=== PATIENT | male | born 1995 | race Native Hawaiian/Other Pacific Islander ===

== ENCOUNTER 2024-03-17 17:06 | Emergency (ER) | payer OTHER ==
[~2024-03-17] VITALS: Ht 175.3 cm; Wt 116.1 kg
[2024-03-17 18:34] LABS: Basophils # (auto) 0 10 ^3/uL (0-0.2); Basophils % (auto) 0.4 % (0.0-2.0); Eosinophils # (auto) 0.1 10 ^3/uL (0-0.8); Eosinophils % (auto) 0.9 % (0.0-7.0); Hematocrit 33.5 % (41.0-53.0); Hemoglobin 11.5 g/dL (13.5-17.5); Lymphocytes # (auto) 3.6 10 ^3/uL (0.4-5.4); Lymphocytes % (auto) 48.2 % (10.0-50.0); Mean Corpuscular Hemoglobin 31.1 pg (28.0-32.0); Mean Corpuscular Hgb Conc. 34.4 g/dL (32.0-36.0); Mean Corpuscular Volume 90.3 fL (80.0-100.0); Monocytes # (auto) 0.9 10 ^3/uL (0-1.3); Monocytes % (auto) 11.5 % (0.0-12.0); Neutrophils # (auto) 2.9 10 ^3/uL (1.6-8.6); Nucleated Red Blood Cells % 0.2 %; Red Blood Cells 3.71 10^6/uL (4.5-5.90); Red Cell Distribution Width 13.3 % (11.8-14.3); White Blood Cell 7.5 10^3/uL (4.4-10.8)
[2024-03-17 18:53] LABS: Alanine Aminotransferase 36 U/L (7-40); Alkaline Phosphatase 64 U/L (46-116); Anion Gap 9 (5-15); Aspartate Aminotransferase 23 U/L (13-40); BUN/Creatinine Ratio 31.7 (10.0-20.0); Bilirubin, Total 0.6 mg/dL (0.2-1.0); Blood Urea Nitrogen 32 mg/dL (9-23); Calcium 8.5 mg/dL (8.5-10.1); Carbon Dioxide 25 mmol/L (20-30); Chloride 102 mmol/L (98-107); Glucose 188 mg/dL (74-106); Potassium 3.1 mmol/L (3.5-5.1); Sodium 136 mmol/L (136-145); Total Protein 6.2 g/dL (5.7-8.2)
[2024-03-17 19:50] LABS: Urine Bacteria None Seen /hpf (None Seen)
[2024-03-17 20:18] LABS: Urine Blood Negative /uL (Negative); Urine Clarity Clear (Clear); Urine Color Light-Yellow (Yellow); Urine Protein, UAD TRACE (Negative); Urine Specific Gravity 1.025 (1.001-1.035); Urine Urobilinogen Normal (Negative); Urine WBC <1 /hpf (0 - 3)
[2024-03-17 20:25] LABS: Amphetamine Screen, Urine Neg (NEGATIVE); Barbiturate Scree,Urine Neg (NEGATIVE); Benzodiazephine Screen, Urine Neg (NEGATIVE)
[2024-03-17 20:26] LABS: Cannabinoid Screen, Urine Neg (NEGATIVE); Cocaine Screen, Urine Neg (NEGATIVE); Opiate Scree,Urine Neg (NEGATIVE); Phencyclidine Screen, Urine Neg (NEGATIVE)
[2024-03-17] MEDS ORDERED: ZOFR4T PO (22:32)
[2024-03-17] MEDS ORDERED: MECL25CH85 PO (22:32)
[2024-03-17] MEDS ORDERED: IBUP1TAB5 PO (22:32)
[2024-03-17] MEDS: MECLIZINE HCL 25 MG TAB PO ONE (23:11)
[2024-03-17] MEDS: POTASSIUM CHL 20 Meq TABLET PO ONE (23:12)
[2024-03-17] MEDS: SODIUM CHLORIDE 0.9% 2,000 ML IV ONE (23:12)
[2024-03-17] MEDS: ONDANSETRON HCL 4 MG/2 ML VIAL IV ONE (23:12)
[2024-03-17] MEDS: HYDROcodone-ACET 5/325MG TAB PO ONE (23:12)
[2024-03-18 00:08] VITALS: BP 126/77; PULSE 101; RESP 16; O2SAT 100
== END 2024-03-18 00:09 | disposition home or self-care (01) ==
LOC: ER 17:06
DX: R42 Dizziness and giddiness (principal); E87.6 Hypokalemia; E86.0 Dehydration; R51.9 Headache, unspecified
CPT/HCPCS: 36415; 70450; 80053; 80307; 81001; 84443; 84484; 85025; 85379; 93005; 96360; 99284; J7030; J8597; J2405